=== PATIENT | female | born 1985 | race African-American/Black ===

== ENCOUNTER 2017-11-03 10:18 | Emergency (ER) | END 2017-11-03 11:45 | disposition home or self-care (01) ==

== ENCOUNTER 2019-01-20 10:53 | Emergency (ER) | payer MEDICAID, OTHER ==
[~2019-01-20] VITALS: Ht 160 cm; Wt 54.0 kg
[~2019-01-20 10:53] MED LIST: IBUP-1561 PO
[2019-01-20 10:58] VITALS: BP 124/74; PULSE 79; RESP 18; Ht 160 cm; Wt 54.0 kg
--- NOTE | 2019-01-20 11:14 | ERD ---
ER Documentation Chief Complaint Chief Complaint Pt with LAC to right index finger after slamming finger with car door. HPI Patient is a 33 years old female with no known past medical history presenting to the clinic for laceration of right index finger. Patient reports excellently slamming the car door onto her right index finger which is followed by profuse bleeding and significant pain. Patient admits to covering laceration with tape that stopped the bleeding. She cannot recall the last known tetanus vaccination. ROS All systems reviewed and are negative except as per history of present illness. Medications Home Meds Active Scripts Ibuprofen* (Motrin*) 800 Mg Tab, 800 MG PO Q6, #30 TAB Prov:SAMEERA MOE PA-C 01/20/19 Ibuprofen* (Motrin*) 400 Mg Tab, 400 MG PO Q6, #30 TAB Prov:EPI SINGH PA-C 11/03/17 Allergies Allergies: Coded Allergies: No Known Allergy (Unverified , 01/20/19) PMhx/Soc Hx Alcohol Use: No Hx Substance Use: No Hx Tobacco Use: No Physical Exam Vitals Vital Signs Date Temp Pulse Resp B/P (MAP) Pulse Ox O2 O2 Flow FiO2 Time Delivery Rate 01/20/19 98.0 79 18 124/74 100 10:58 (91) Physical Exam Const: No acute distress Head: Atraumatic Eyes: Normal Conjunctiva ENT: Normal External Ears, Nose and Mouth. Neck: Full range of motion. No meningismus. Resp: Clear to auscultation bilaterally Cardio: Regular rate and rhythm, no murmurs Abd: Soft, non tender, non distended. Normal bowel sounds Skin: No petechiae or rashes Back: No midline or flank tenderness Ext: No cyanosis, or edema Neur: Awake and alert Psych: Normal Mood and Affect Right 2nd digit exam: Digital nerve block with 1% lidocaine achieved prior to examination. Patient requested nerve block prior to removing adhesive due to pain. small 1cm Superficial laceration. Results 24 hrs Laboratory Tests Test 01/20/19 11:30 POC Beta HCG, Qualitative NEGATIVE Current Medications Medications Dose Sig/Kendall Start Time Status Last (Trade) Ordered Route PRN Stop Time Admin Dose Reason Admin Ketorolac 60 mg ONCE STAT 01/20/19 DC 01/20/19 Tromethamine IM 11:15 01/20/19 11:34 (Toradol) 11:19 Diphtheria/ 0.5 ml ONCE ONCE 01/20/19 DC 01/20/19 Tetanus/Acell IM* 11:30 01/20/19 11:27 Pertussis 11:31 (Adacel) Bacitracin 1 applic ONCE ONCE 01/20/19 DC (Bacitracin TOP 13:30 01/20/19 0.5%/ Zinc 13:30 Oint) Bacitracin 1 applic ONCE ONCE 01/20/19 DC (Bacitracin TOP 13:30 01/20/19 Oint (Ud)) 13:31 Procedures/MDM Patient was seen and evaluated for right finger laceration/pain status post blunt trauma from car door. Right second digit (index finger) x-ray revealed no fractures. Patient requested digital nerve block prior to removing adhesive tape due to severe tenderness. Digital block was applied with 1% lidocaine followed by examination of right index finger. No sutures required for today's visit. Dressing application with bacitracin applied. Patient is stable ready for discharge. Follow-up with PCP. Patient will be discharged with ibuprofen. Departure Diagnosis: Primary Impression: Laceration Condition: Stable Patient Instructions: Laceration, Hand Referrals: [facility] Additional Instructions: Patient advised to return to the ED immediately for new or worsening symptoms. Patient advised to follow up with primary care provider in the next 24-48 hours. Patient verbalized understanding and agrees with treatment plan and course of action. If patient has no primary care they may follow up with [facility] [address] [place] [id number] or [facility] [id number] [place] [address] [id number] SAMEERA MOE PA-C Jan 20, 2019 11:14
[2019-01-20] MEDS ORDERED: KETOROLAC 60 MG INJ IM STA (11:15)
[2019-01-20] MEDS ORDERED: DIPHTH/TET/ACEL PERTUSS (ADULT) 0.5 ML VIAL IM* ONE (11:30)
[2019-01-20] MEDS ORDERED: IBUP800T48 PO (13:25)
[2019-01-20] MEDS ORDERED: BACITRACIN 0.9 GM OINT TOP ONE (13:30)
[2019-01-20] MEDS ORDERED: BACITRACIN 0.5%/ZINC 28.35 GM OINT TOP ONE (13:30)
== END 2019-01-20 13:39 | disposition home or self-care (01) ==
LOC: FTE 10:53
DX: S61.210A Laceration without foreign body of right index finger without damage to nail, initial encounter (principal); W23.0XXA Caught, crushed, jammed, or pinched between moving objects, initial encounter; Y92.810 Car as the place of occurrence of the external cause
CPT/HCPCS: 64450; 73140; 81025; 90471; 90715; 96372; J1885; Z7502; Z7610